=== PATIENT | male | born 1950 | race African-American/Black ===

== ENCOUNTER 2024-11-22 18:35 | Observation (INO) | payer OTHER ==
[2024-11-22 18:47] VITALS: RESP 18
[2024-11-22 20:19] LABS: BASO % 0.6 % (0-2.0); EOS % 4.2 % (0-4.5); HEMATOCRIT 31.3 % (35.4-49); HEMOGLOBIN 10.2 GM/dL (11.7-16.9); LYMPH % 17.5 % (8-40); MCH 28.4 pg (25.7-33.7); MCHC 32.6 g/dl (32.0-35.9); MEAN CELL VOLUME 87.3 fl (80-96); MEAN PLT VOLUME 7.9 fl (7.5-11.1); MONO % 9.4 % (3.8-10.2); NEUT % 68.3 % (42.8-82.8); PLATELET COUNT 323 10^3/uL (134-434); RBC 3.58 M/mm3 (4.00-5.60); RDW 14.6 % (11.9-15.9); WHITE BLOOD COUNT 9.9 K/mm3 (4.0-10.0)
[2024-11-22 20:28] LABS: INR 1.14 (0.83-1.09); PROTHROMBIN TIME (PATIENT) 13.1 SEC (9.7-13.0)
[2024-11-22 20:30] LABS: ACTIVATED PTT 36.1 SECONDS (25.2-36.5)
[2024-11-22 20:40] LABS: CALCIUM 9.1 mg/dL (8.5-10.1)
[2024-11-22 20:41] LABS: ALBUMIN 3.4 g/dl (3.4-5.0); BLOOD UREA NITROGEN 19.2 mg/dL (7-18)
[2024-11-22 20:44] LABS: CREATININE 1.2 mg/dL (0.55-1.3)
[2024-11-22 20:46] LABS: BILIRUBIN,TOTAL 0.9 mg/dL (0.2-1); TOT PROT 6.9 g/dl (6.4-8.2)
[2024-11-22 21:57] LABS: POTASSIUM 3.3 mmol/L (3.5-5.1)
[2024-11-23] MEDS ORDERED: PIPERACILLIN/TAZOB 3.375 GM 3.375 GM/50 ML BAG IVPB ONE (04:50)
[2024-11-23] MEDS: PIPERACILLIN/TAZOB 3.375 GM 3.375 GM in DEXTROSE 5%-WATER - 50 ML IVPB ONE (04:59)
[2024-11-23] MEDS ORDERED: ACETAMINOPHEN 1000 MG/100 ML BAG IVPB PRN (05:29)
[2024-11-23] MEDS: NIFEdipine E.R. 30 MG TABLET PO SCH (06:47)
[2024-11-23] MEDS: FUROSEMIDE 40 MG/4 ML INJECTABLE VIAL IVPUSH ONE ×2 (06:47→14:31)
[2024-11-23 09:17] VITALS: BMI 28.7
[2024-11-23 09:23] LABS: BASO % 0.6 % (0-2.0); EOS % 4.2 % (0-4.5); HEMATOCRIT 31.6 % (35.4-49); HEMOGLOBIN 10.7 GM/dL (11.7-16.9); LYMPH % 14.9 % (8-40); MCHC 33.7 g/dl (32.0-35.9); MEAN CELL VOLUME 85.8 fl (80-96); MEAN PLT VOLUME 8.3 fl (7.5-11.1); MONO % 10.1 % (3.8-10.2); NEUT % 70.2 % (42.8-82.8); PLATELET COUNT 334 10^3/uL (134-434); RBC 3.68 M/mm3 (4.00-5.60); RDW 14.9 % (11.9-15.9); WHITE BLOOD COUNT 8.2 K/mm3 (4.0-10.0)
[2024-11-23 09:25] LABS: POTASSIUM 3.2 mmol/L (3.5-5.1)
[2024-11-23 09:31] LABS: ALBUMIN 3.4 g/dl (3.4-5.0)
[2024-11-23 09:32] LABS: BLOOD UREA NITROGEN 16.8 mg/dL (7-18); MAGNESIUM 2.2 mg/dL (1.8-2.4)
[2024-11-23 09:34] LABS: CREATININE 1.1 mg/dL (0.55-1.3)
[2024-11-23 09:35] LABS: PHOSPHOROUS 3.7 mg/dL (2.5-4.9)
[2024-11-23 09:36] LABS: BILIRUBIN,TOTAL 1.1 mg/dL (0.2-1); TOT PROT 6.9 g/dl (6.4-8.2)
[2024-11-23] MEDS: APIXABAN 5 MG TABLET PO SCH (09:50)
[2024-11-23] MEDS ORDERED: CHLORTHALIDONE 25 MG TABLET PO SCH (10:00)
[2024-11-23] MEDS: POTASSIUM CHLORIDE TABS 20 MEQ TABLET.ER (FP) PO ONE (12:32)
[2024-11-23] MEDS ORDERED: FUROSEMIDE 40 MG/4 ML INJECTABLE VIAL IVPUSH SCH (14:00)
[2024-11-23] MEDS: LABETALOL HCL 100 MG TABLET (FP) PO SCH (14:31)
[2024-11-23] MEDS: hydrALAZINE HCL 50 MG TABLET (FP) PO SCH (14:32)
[2024-11-23] MEDS: CHLORTHALIDONE 25 MG TABLET PO SCH (21:33)
[2024-11-24 09:06] LABS: BASO % 0.9 % (0-2.0); EOS % 3.1 % (0-4.5); HEMATOCRIT 32.2 % (35.4-49); HEMOGLOBIN 10.6 GM/dL (11.7-16.9); LYMPH % 17.1 % (8-40); MCH 28.5 pg (25.7-33.7); MCHC 32.9 g/dl (32.0-35.9); MEAN CELL VOLUME 86.6 fl (80-96); MEAN PLT VOLUME 8.3 fl (7.5-11.1); MONO % 9.8 % (3.8-10.2); NEUT % 69.1 % (42.8-82.8); PLATELET COUNT 338 10^3/uL (134-434); RBC 3.72 M/mm3 (4.00-5.60); RDW 14.8 % (11.9-15.9); WHITE BLOOD COUNT 9.7 K/mm3 (4.0-10.0)
[2024-11-24 09:30] LABS: ALBUMIN 3.2 g/dl (3.4-5.0); BLOOD UREA NITROGEN 18.7 mg/dL (7-18); MAGNESIUM 2.2 mg/dL (1.8-2.4)
[2024-11-24 09:33] LABS: CREATININE 1.1 mg/dL (0.55-1.3)
[2024-11-24 09:34] LABS: BILIRUBIN,TOTAL 1.2 mg/dL (0.2-1); TOT PROT 6.8 g/dl (6.4-8.2)
[2024-11-24] MEDS: FUROSEMIDE 40 MG TABLET (FP) PO SCH (09:59)
[2024-11-24 10:13] VITALS: BP 134/71; PULSE 76; TEMP 98.4
== END 2024-11-24 11:28 | disposition home or self-care (01) ==
LOC: JER 18:35 → JERBED 11-23 03:10 → J7W 11-23 06:20
PROVIDERS: ADMIT Internal Medicine
PROC: 3E03329 Introduction of Other Anti-infective into Peripheral Vein, Percutaneous Approach (ICD-10-PCS; principal; 2024-11-23)
PROC: 3E033GC Introduction of Other Therapeutic Substance into Peripheral Vein, Percutaneous Approach (ICD-10-PCS; 2024-11-23)
DX: I70.201 Unspecified atherosclerosis of native arteries of extremities, right leg (principal); I70.202 Unspecified atherosclerosis of native arteries of extremities, left leg; R60.0 Localized edema; I73.9 Peripheral vascular disease, unspecified; I10 Essential (primary) hypertension; R73.09 Other abnormal glucose; L76.32 Postprocedural hematoma of skin and subcutaneous tissue following other procedure; I83.93 Asymptomatic varicose veins of bilateral lower extremities; D64.9 Anemia, unspecified; N40.0 Benign prostatic hyperplasia without lower urinary tract symptoms
CPT/HCPCS: 36415; 73706-TC-RT; 80053; 83036; 83605; 83735; 83880; 84100; 85025; 85610; 85730; 86850; 86900; 86901; 93005; 93010; 93306-TC; 93971-TC; 96365; 96375; 96376; 99285-25; G0378; Q9967